=== PATIENT | female | born 1940 | race Caucasian/White ===

== ENCOUNTER → 2017-02-11 | Outpatient (CLI) | payer MEDICARE ==
[~2017-02-11] MED LIST: /FENT50PA TD; DIOV160T5 OR; IBUP400T PO; METO50TA4 OR; MIRALEX PO; MULTIVIT PO; NORV5TAB OR; VICO5TAB OR
[2017-02-11 11:51] LABS: MEAN CORPUSCULAR HEMOGLOBIN 31.8 pg (27.0-33.0); MEAN CORPUSCULAR HGB CONC 32.5 g/dl (32.0-36.5); MEAN CORPUSCULAR VOLUME 97.9 fl (80.0-96.0); RED CELL DISTRIBUTION WIDTH 13.1 % (11.5-14.5); WHITE BLOOD COUNT 9.8 K/mm3 (4.0-10.0)
[2017-02-11 12:00] LABS: ALBUMIN 3.9 GM/DL (3.2-5.2); ALBUMIN/GLOBULIN RATIO 1.3 (1.00-1.93); BILIRUBIN,TOTAL 0.5 MG/DL (0.2-1.0); CALCIUM LEVEL 9.1 MG/DL (8.8-10.2); CREATININE FOR GFR 1.02 MG/DL (0.55-1.02); GLOMERULAR FILTRATION RATE 56.1 (>39); MAGNESIUM LEVEL 2.1 MG/DL (1.8-2.4); POTASSIUM SERUM 4.2 MEQ/L (3.5-5.1); TOTAL PROTEIN 6.9 GM/DL (6.4-8.2)
== END ==
LOC: M WUC 09:31
PROVIDERS: ATTEND Internal Medicine
DX: I10 Essential (primary) hypertension (principal); E11.9 Type 2 diabetes mellitus without complications; E78.00 Pure hypercholesterolemia, unspecified; Z79.01 Long term (current) use of anticoagulants

== ENCOUNTER → 2017-03-21 | Outpatient (CLI) | payer MEDICARE ==
--- NOTE | 2017-03-21 08:53 | REPMRS ---
Patient History The patient states she has not had a clinical breast exam in over a year. Patient is postmenopausal. Family history of prostate cancer in father at age 70, breast cancer in sister at age 65, breast cancer in maternal grandmother at age 70, and breast cancer in paternal cousin at age 60. Took hormonal contraceptives for 5 years. Digital Woman Screen Mammo: March 21, 2017 - Exam #: [id number] Bilateral CC and MLO view(s) were taken. Technologist: Lora Denis, Technologist Prior study comparison: March 06, 2016, digital woman screen mammo performed at [facility]. February 25, 2012, digital mammo diagnostic bilateral, performed at [facility]. FINDINGS: There are scattered fibroglandular densities. There is a needle biopsy marker clip projecting in each breast. There has been no change in the appearance of the mammogram from the prior studies. There is a mild amount of scattered fibroglandular density which is fairly symmetric. There is no interval development of dominant mass, architectural distortion, or clustered microcalcification suggestive of malignancy. ASSESSMENT: BI-RADS/ACR category 1 mammogram. Negative. Recommendation Routine screening mammogram in 1 year (for women over age 40). This mammogram was interpreted with the aid of an FDA-approved computer-aided dectection system. Electronically Signed By: Luis Hernandez MD 03/21/17 [id number]
== END ==
LOC: M WHC 08:16
PROVIDERS: ATTEND Internal Medicine
DX: Z12.31 Encounter for screening mammogram for malignant neoplasm of breast (principal); Z78.0 Asymptomatic menopausal state; I10 Essential (primary) hypertension; Z80.3 Family history of malignant neoplasm of breast

== ENCOUNTER → 2017-08-12 | Outpatient (CLI) | payer MEDICARE ==
[2017-08-12 13:17] LABS: MEAN CORPUSCULAR HGB CONC 31.1 g/dl (32.0-36.5); MEAN CORPUSCULAR VOLUME 96.4 fl (80.0-96.0); PLATELET COUNT, AUTOMATED 256 10^3/uL (150-450); RED CELL DISTRIBUTION WIDTH 13.1 % (11.5-14.5); WHITE BLOOD COUNT 10.8 10^3/uL (4.0-10.0)
[2017-08-12 13:53] LABS: ALBUMIN 3.5 GM/DL (3.2-5.2); ALBUMIN/GLOBULIN RATIO 1.03 (1.00-1.93); ALKALINE PHOSPHATASE 83 U/L (45-117); ALT/SGPT 19 U/L (12-78); ANION GAP 7 MEQ/L (8-16); AST/SGOT 12 U/L (7-37); BILIRUBIN,TOTAL 0.4 MG/DL (0.2-1.0); BLOOD UREA NITROGEN 17 MG/DL (7-18); CARBON DIOXIDE LEVEL 30 MEQ/L (21-32); CHLORIDE LEVEL 106 MEQ/L (98-107); CHOLESTEROL LEVEL 125 MG/DL (<200); CREATININE FOR GFR 0.92 MG/DL (0.55-1.02); GLOMERULAR FILTRATION RATE > 60.0 (>39); GLUCOSE, FASTING 149 MG/DL (83-110); SODIUM LEVEL 143 MEQ/L (136-145); TOTAL PROTEIN 6.9 GM/DL (6.4-8.2); TRIGLYCERIDES LEVEL 161 MG/DL (<150); URIC ACID 6.4 MG/DL (2.6-6.0)
== END ==
LOC: M WUC 09:03
PROVIDERS: ATTEND Internal Medicine
DX: Z79.01 Long term (current) use of anticoagulants (principal); I10 Essential (primary) hypertension; E11.9 Type 2 diabetes mellitus without complications

== ENCOUNTER → 2017-12-29 | Outpatient (CLI) | payer MEDICARE ==
[2017-12-29 09:22] LABS: CHOLESTEROL LEVEL 165 MG/DL (<200); HDL CHOLESTEROL 47 MG/DL (>40); LDL CHOLESTEROL 85.2 MG/DL (<100); NON-HDL-C 118 MG/DL; TRIGLYCERIDES LEVEL 164 MG/DL (<150)
== END ==
LOC: M WUC 08:34
DX: E78.2 Mixed hyperlipidemia (principal)
CPT/HCPCS: 80061

== ENCOUNTER → 2018-02-10 | Outpatient (CLI) | payer MEDICARE ==
[2018-02-10 12:28] LABS: HEMATOCRIT 36.4 % (36.0-47.0); HEMOGLOBIN 11.4 g/dl (12.0-15.5); MEAN CORPUSCULAR HEMOGLOBIN 30.5 pg (27.0-33.0); MEAN CORPUSCULAR HGB CONC 31.3 g/dl (32.0-36.5); MEAN CORPUSCULAR VOLUME 97.3 fl (80.0-96.0); PLATELET COUNT, AUTOMATED 210 10^3/uL (150-450); RED BLOOD COUNT 3.74 10^6/uL (4.00-5.40); RED CELL DISTRIBUTION WIDTH 14.1 % (11.5-14.5); WHITE BLOOD COUNT 9.6 10^3/uL (4.0-10.0)
[2018-02-10 12:49] LABS: FOLATE 22.8 NG/ML
[2018-02-10 12:55] LABS: ALBUMIN/GLOBULIN RATIO 1.54 (1.00-1.93); ALKALINE PHOSPHATASE 52 U/L (45-117); ALT/SGPT 16 U/L (12-78); ANION GAP 5 MEQ/L (8-16); AST/SGOT 14 U/L (7-37); BILIRUBIN,TOTAL 0.4 MG/DL (0.2-1.0); BLOOD UREA NITROGEN 21 MG/DL (7-18); CARBON DIOXIDE LEVEL 31 MEQ/L (21-32); CHLORIDE LEVEL 107 MEQ/L (98-107); CHOLESTEROL LEVEL 144 MG/DL (<200); CHOLESTEROL RISK RATIO 3.512 (<5); FERRITIN 85 NG/ML (8-252); GLOMERULAR FILTRATION RATE 57.2 (>39); GLUCOSE, FASTING 130 MG/DL (70-100); HDL CHOLESTEROL 41 MG/DL (>40); IRON (FE) 55 UG/DL (50-170); LDL CHOLESTEROL 67.8 MG/DL (<100); MAGNESIUM LEVEL 2.3 MG/DL (1.8-2.4); NON-HDL-C 103 MG/DL; PERCENT SATURATION 21.5 % (13.2-45.0); POTASSIUM SERUM 4.9 MEQ/L (3.5-5.1); SODIUM LEVEL 143 MEQ/L (136-145); TOTAL IRON BINDING CAPACITY 256 UG/DL (250-450); TOTAL PROTEIN 6.6 GM/DL (6.4-8.2); TRIGLYCERIDES LEVEL 176 MG/DL (<150)
[2018-02-10 13:07] LABS: CREATININE, URINE 84.4 MG/DL; MAU/CREAT RATIO 5.9 MCG/MG (0.0-30.0)
[2018-02-10 13:40] LABS: ESTIMATED AVERAGE GLUCOSE 146 MG/DL (60-110); HEMOGLOBIN A1c 6.7 %
[2018-02-10 13:50] LABS: VITAMIN B12 LEVEL 428 PG/ML
== END ==
LOC: M WUC 09:26
DX: D64.9 Anemia, unspecified (principal); I10 Essential (primary) hypertension; E11.9 Type 2 diabetes mellitus without complications; E78.00 Pure hypercholesterolemia, unspecified
CPT/HCPCS: 82746

== ENCOUNTER 2018-04-04 16:14 | Emergency (ER) | payer MEDICARE ==
[2018-04-04] MEDS: PERCOCET 5MG/325MG TAB PO (16:45)
== END 2018-04-04 17:26 | disposition home or self-care (01) ==
LOC: M ED 16:14
DX: S22.32XA Fracture of one rib, left side, initial encounter for closed fracture (principal); J90 Pleural effusion, not elsewhere classified; I51.7 Cardiomegaly; W19.XXXA Unspecified fall, initial encounter; Y92.9 Unspecified place or not applicable; Y93.9 Activity, unspecified; Y99.9 Unspecified external cause status; I51.9 Heart disease, unspecified; I10 Essential (primary) hypertension; Z87.891 Personal history of nicotine dependence; Z79.899 Other long term (current) drug therapy; Z88.5 Allergy status to narcotic agent; Z88.8 Allergy status to other drugs, medicaments and biological substances
CPT/HCPCS: 94010

== ENCOUNTER → 2018-04-04 | Outpatient (CLI) | payer MEDICARE | LOC: M WUC 15:38 | DX: S22.32XA Fracture of one rib, left side, initial encounter for closed fracture (principal); J90 Pleural effusion, not elsewhere classified; I51.7 Cardiomegaly; X58.XXXA Exposure to other specified factors, initial encounter; Y92.9 Unspecified place or not applicable ==

== ENCOUNTER → 2018-08-04 | Outpatient (REF) | payer MEDICARE ==
[2018-08-04 12:16] LABS: ALBUMIN 3.8 GM/DL (3.2-5.2); ALBUMIN/GLOBULIN RATIO 1.36 (1.00-1.93); ALKALINE PHOSPHATASE 68 U/L (45-117); ALT/SGPT 16 U/L (12-78); ANION GAP 8 MEQ/L (8-16); AST/SGOT 9 U/L (7-37); BILIRUBIN,TOTAL 0.8 MG/DL (0.2-1.0); BLOOD UREA NITROGEN 19 MG/DL (7-18); CALCIUM LEVEL 9.2 MG/DL (8.8-10.2); CARBON DIOXIDE LEVEL 32 MEQ/L (21-32); CHLORIDE LEVEL 98 MEQ/L (98-107); CREATININE FOR GFR 1.11 MG/DL (0.55-1.30); GLOMERULAR FILTRATION RATE 50.6 (>39); GLUCOSE, FASTING 158 MG/DL (70-100); MAGNESIUM LEVEL 1.8 MG/DL (1.8-2.4); POTASSIUM SERUM 4.6 MEQ/L (3.5-5.1); SODIUM LEVEL 138 MEQ/L (136-145); TOTAL PROTEIN 6.6 GM/DL (6.4-8.2); URIC ACID 6.4 MG/DL (2.6-6.0)
[2018-08-04 12:24] LABS: HEMATOCRIT 35.8 % (36.0-47.0); HEMOGLOBIN 11.2 g/dl (12.0-15.5); MEAN CORPUSCULAR HEMOGLOBIN 30.4 pg (27.0-33.0); MEAN CORPUSCULAR HGB CONC 31.3 g/dl (32.0-36.5); MEAN CORPUSCULAR VOLUME 97.3 fl (80.0-96.0); PLATELET COUNT, AUTOMATED 222 10^3/uL (150-450); RED BLOOD COUNT 3.68 10^6/uL (4.00-5.40); RED CELL DISTRIBUTION WIDTH 14.3 % (11.5-14.5); WHITE BLOOD COUNT 17.1 10^3/uL (4.0-10.0)
[2018-08-04 12:49] LABS: ESTIMATED AVERAGE GLUCOSE 146 MG/DL (60-110); HEMOGLOBIN A1c 6.7 %
== END ==
LOC: M SFHCPLAZ 08:19
DX: D64.9 Anemia, unspecified (principal); I10 Essential (primary) hypertension; E11.9 Type 2 diabetes mellitus without complications; M10.9 Gout, unspecified
CPT/HCPCS: 83735

== ENCOUNTER → 2019-02-03 | Outpatient (CLI) | payer MEDICARE ==
[~2019-02-03] MED LIST changes: -/FENT50PA TD; +ATOR40TA75 PO; +CARV6.25 PO; +CHLO125TA PO; +DIGO0.259 PO; +ELIQ5TAB PO; +FENT1DIS15 TD; +JANU100T PO; +LOSA100T50 PO; +PERC5TAB12 PO
[2019-02-03 12:12] LABS: HEMATOCRIT 39.9 % (36.0-47.0); HEMOGLOBIN 12.5 g/dl (12.0-15.5); MEAN CORPUSCULAR HEMOGLOBIN 30.4 pg (27.0-33.0); MEAN CORPUSCULAR HGB CONC 31.3 g/dl (32.0-36.5); MEAN CORPUSCULAR VOLUME 97.1 fl (80.0-96.0); PLATELET COUNT, AUTOMATED 194 10^3/uL (150-450); RED BLOOD COUNT 4.11 10^6/uL (4.00-5.40); WHITE BLOOD COUNT 9.1 10^3/uL (4.0-10.0)
[2019-02-03 12:37] LABS: ALBUMIN 3.7 GM/DL (3.2-5.2); ALT/SGPT 19 U/L (12-78); BILIRUBIN,TOTAL 0.4 MG/DL (0.2-1.0); BLOOD UREA NITROGEN 19 MG/DL (7-18); CALCIUM LEVEL 8.9 MG/DL (8.8-10.2); CARBON DIOXIDE LEVEL 31 MEQ/L (21-32); CHLORIDE LEVEL 104 MEQ/L (98-107); CHOLESTEROL LEVEL 144 MG/DL (<200); CREATININE FOR GFR 0.86 MG/DL (0.55-1.30); GLOMERULAR FILTRATION RATE > 60.0 (>39); GLUCOSE, FASTING 155 MG/DL (70-100); HDL CHOLESTEROL 40 MG/DL (>40); LDL CHOLESTEROL 69 MG/DL (<100); NON-HDL-C 104 MG/DL; POTASSIUM SERUM 4.3 MEQ/L (3.5-5.1); SODIUM LEVEL 142 MEQ/L (136-145); TRIGLYCERIDES LEVEL 175 MG/DL (<150)
[2019-02-03 12:56] LABS: CREATININE, URINE 86.8 MG/DL; MALB URINE SIEMENS 16.5 MG/L
[2019-02-03 13:34] LABS: HEMOGLOBIN A1c 7.1 %
== END ==
LOC: M WUC 08:39
PROVIDERS: ATTEND Internal Medicine
DX: D64.9 Anemia, unspecified (principal); I10 Essential (primary) hypertension; E11.9 Type 2 diabetes mellitus without complications; I48.0 Paroxysmal atrial fibrillation

== ENCOUNTER → 2019-04-13 | Outpatient (CLI) | payer MEDICARE ==
--- NOTE | 2019-04-13 12:02 | REP ---
BILATERAL SCREENING DIGITAL MAMMOGRAM WITH 3D TOMOSYNTHESIS: There are no palpable abnormalities or other breast complaints. The the patient states she has not had a clinical breast examination over a year. The the patient states she performs self-breast examinations 12 times per year. The Tyrer Cuzick Score is: 5.9% . Comparisons are 03/06/2016 and 02/14/2012. The breasts are heterogeneously dense, which could obscure small masses. There is no dominant mass, micro calcific cluster or architectural distortion that would indicate malignancy. There are no additional findings on 3D tomosynthesiss. There are bilateral breast biopsy marking clips. The the patient had bilateral breast biopsies in 2011 at were benign. There is no change from the prior study. Impression: BIRADS/ACR category 1 mammogram. Negative. Recommendation: Routine annual screening mammography. Because of the increased breast density, annual adjunctive breast MRI in addition to screening mammography is recommended. This mammogram was interpreted with the aid of a FDA approved computer-aided detection system. A. Negative mammogram reports should not delay biopsy if a dominant or clinically suspicious mass is present. B. Not all breast cancers are identified by mammography or tomosynthesis. C. Adenosis and dense breasts may obscure an underlying neoplasm. Patient letter M1 dense breasts. Electronically Signed by Alvaro Lucio MD 04/13/2019 11:54 A
== END ==
LOC: M WHC 09:08
PROVIDERS: ATTEND Internal Medicine
DX: Z12.31 Encounter for screening mammogram for malignant neoplasm of breast (principal)

== ENCOUNTER 2019-05-14 08:32 | Outpatient (RCR) | payer MEDICARE | END 2019-05-15 | LOC: M PT 08:32 | PROVIDERS: ATTEND Orthopaedic Surgery | DX: Z47.89 Encounter for other orthopedic aftercare (principal); M18.12 Unilateral primary osteoarthritis of first carpometacarpal joint, left hand; M65.842 Other synovitis and tenosynovitis, left hand | CPT/HCPCS: 97035; 97110; 97140; 97161; G0283 ==

== ENCOUNTER 2019-05-18 08:38 | Outpatient (RCR) | payer MEDICARE | END 2019-06-14 | LOC: M PT 08:38 | PROVIDERS: ATTEND Orthopaedic Surgery | DX: Z47.89 Encounter for other orthopedic aftercare (principal); M18.12 Unilateral primary osteoarthritis of first carpometacarpal joint, left hand; M65.842 Other synovitis and tenosynovitis, left hand | CPT/HCPCS: 97035; 97110; G0283 ==

== ENCOUNTER → 2019-08-10 | Outpatient (CLI) | payer MEDICARE ==
[2019-08-10 12:53] LABS: BILIRUBIN,TOTAL 0.7 MG/DL (0.2-1.0); CALCIUM LEVEL 9.6 MG/DL (8.8-10.2); CHOLESTEROL RISK RATIO 3.625 (<5); CREATININE FOR GFR 1.01 MG/DL (0.55-1.30); GLOMERULAR FILTRATION RATE 56.3 (>39); MAGNESIUM LEVEL 1.9 MG/DL (1.8-2.4); POTASSIUM SERUM 3.8 MEQ/L (3.5-5.1); TOTAL PROTEIN 7.2 GM/DL (6.4-8.2)
[2019-08-10 12:57] LABS: HEMATOCRIT 38.2 % (36.0-47.0); HEMOGLOBIN 12.1 g/dl (12.0-15.5); MEAN CORPUSCULAR HEMOGLOBIN 30.9 pg (27.0-33.0); MEAN CORPUSCULAR HGB CONC 31.7 g/dl (32.0-36.5); MEAN CORPUSCULAR VOLUME 97.7 fl (80.0-96.0); PLATELET COUNT, AUTOMATED 217 10^3/uL (150-450); RED BLOOD COUNT 3.91 10^6/uL (4.00-5.40); WHITE BLOOD COUNT 10.8 10^3/uL (4.0-10.0)
[2019-08-10 14:00] LABS: HEMOGLOBIN A1c 6.6 %
== END ==
LOC: M WUC 09:00
PROVIDERS: ATTEND Internal Medicine
DX: D64.9 Anemia, unspecified (principal); I10 Essential (primary) hypertension; E11.9 Type 2 diabetes mellitus without complications; E78.00 Pure hypercholesterolemia, unspecified

== ENCOUNTER → 2020-01-31 | Outpatient (CLI) | payer MEDICARE ==
[~2020-01-31] MED LIST changes: +AMLO5TAB6; +KEFL500C17 PO
--- NOTE | 2020-01-31 13:21 | REP ---
RIGHT LOWER LEG, TWO VIEWS: There is no evidence of an acute fracture, dislocation, or intrinsic bone disease. There is mild posterior calcaneal spurring. IMPRESSION: No fracture or dislocation. Electronically Signed by Alvaro Farias MD 01/31/2020 01:45 P
== END ==
LOC: M WUC 10:25
PROVIDERS: ATTEND Physician Assistant
DX: M79.661 Pain in right lower leg (principal)

== ENCOUNTER 2020-02-03 10:23 | Emergency (ER) | payer MEDICARE ==
[~2020-02-03] VITALS: Ht 157.5 cm; Wt 98.6 kg
[~2020-02-03 10:23] MED LIST changes: -AMLO5TAB6; -KEFL500C17 PO
[2020-02-03 10:24] VITALS: BP 179/85
[2020-02-03] MEDS ORDERED: AMLO5TAB6 (10:47)
--- NOTE | 2020-02-03 12:24 | REP ---
ULTRASOUND ANTERIOR RIGHT LOWER LEG SOFT TISSUES: Real-time sonographic evaluation of the soft tissues of the anterior aspect of the right lower leg performed at the site of swelling. There is a somewhat lobulated hypoechoic area seen which measures 3.8 x 1.1 x 3.9 cm. This most likely represents a hematoma. There is an adjacent ill-defined edema in the soft tissues. Electronically Signed by Alvaro Farias MD 02/03/2020 02:57 P
[2020-02-03] MEDS ORDERED: KEFL500C17 PO (12:41)
== END 2020-02-03 12:48 | disposition home or self-care (01) ==
LOC: M ED 10:23
DX: S80.11XA Contusion of right lower leg, initial encounter (principal); L03.115 Cellulitis of right lower limb; W22.09XA Striking against other stationary object, initial encounter; Y92.098 Other place in other non-institutional residence as the place of occurrence of the external cause; I10 Essential (primary) hypertension; I48.91 Unspecified atrial fibrillation; E11.9 Type 2 diabetes mellitus without complications; Z98.890 Other specified postprocedural states; Z87.891 Personal history of nicotine dependence; Z88.8 Allergy status to other drugs, medicaments and biological substances; Z79.899 Other long term (current) drug therapy; Z79.01 Long term (current) use of anticoagulants

== ENCOUNTER → 2020-02-09 | Outpatient (CLI) | payer MEDICARE ==
[~2020-02-09] MED LIST changes: +AMLO5TAB6; +KEFL500C17 PO
[2020-02-09 10:23] LABS: HEMOGLOBIN A1c 6.3 %; MALB URINE SIEMENS 16.7 MG/L; MAU/CREAT RATIO 8.2 MCG/MG (0.0-30.0)
[2020-02-09 10:28] LABS: BILIRUBIN,TOTAL 0.7 MG/DL (0.2-1.0); CALCIUM LEVEL 9.4 MG/DL (8.8-10.2); CHOLESTEROL RISK RATIO 3.425 (<5); CREATININE FOR GFR 1.04 MG/DL (0.55-1.30); GLOMERULAR FILTRATION RATE 54.4 (>39); MAGNESIUM LEVEL 2.1 MG/DL (1.8-2.4)
== END ==
LOC: M WUC 08:24
PROVIDERS: ATTEND Internal Medicine
DX: I10 Essential (primary) hypertension (principal); E11.9 Type 2 diabetes mellitus without complications; E78.00 Pure hypercholesterolemia, unspecified

== ENCOUNTER → 2020-08-21 | Outpatient (CLI) | payer MEDICARE ==
[~2020-08-21] MED LIST changes: +AMLO1TAB24; -AMLO5TAB6
[2020-08-21 11:08] LABS: ALBUMIN 3.9 GM/DL (3.2-5.2); BILIRUBIN,TOTAL 0.5 MG/DL (0.2-1.0); CALCIUM LEVEL 9.5 MG/DL (8.8-10.2); CHOLESTEROL RISK RATIO 3.408 (<5); CREATININE FOR GFR 1.09 MG/DL (0.55-1.30); GLOMERULAR FILTRATION RATE 51.4 (>32); MAGNESIUM LEVEL 2.1 MG/DL (1.8-2.4); TOTAL PROTEIN 6.6 GM/DL (6.4-8.2)
[2020-08-21 11:40] LABS: HEMOGLOBIN A1c 6.1 %
== END ==
LOC: M WUC 08:25
PROVIDERS: ATTEND Internal Medicine
DX: E78.00 Pure hypercholesterolemia, unspecified (principal); E11.9 Type 2 diabetes mellitus without complications; I10 Essential (primary) hypertension

== ENCOUNTER 2020-12-25 13:23 | Observation (INO) | payer MEDICARE ==
[~2020-12-25] VITALS: Ht 157.5 cm; Wt 54.3 kg
[2020-12-25 14:51] LABS: BASO # 0.1 10^3/uL (0.0-0.2); BASO % 0.4 % (0.0-1.0); EOS # 0.1 10^3/uL (0.0-0.5); EOS % 0.5 % (0.0-3.0); HEMATOCRIT 40.2 % (36.0-47.0); HEMOGLOBIN 12.8 g/dl (12.0-15.5); LYMPH # 3.6 10^3/uL (1.5-5.0); LYMPH % 30.2 % (24.0-44.0); MEAN CORPUSCULAR HGB CONC 31.8 g/dl (32.0-36.5); MEAN CORPUSCULAR VOLUME 94.4 fl (80.0-96.0); MONO # 0.8 10^3/uL (0.0-0.8); MONO % 6.9 % (2.0-8.0); NEUTROPHILS # 7.3 10^3/uL (1.5-8.5); NEUTROPHILS % 61.7 % (36.0-66.0); PLATELET COUNT, AUTOMATED 209 10^3/uL (150-450); RED BLOOD COUNT 4.26 10^6/uL (4.00-5.40); WHITE BLOOD COUNT 11.8 10^3/uL (4.0-10.0)
[2020-12-25 15:01] LABS: INR 1.12; PROTHROMBIN TIME 14.6 SECONDS (12.5-14.3)
[2020-12-25 15:02] LABS: PARTIAL THROMBOPLASTIN TIME 38.4 SECONDS (24.2-38.5)
[2020-12-25 15:24] LABS: ALBUMIN 4.3 GM/DL (3.2-5.2); BILIRUBIN,TOTAL 0.5 MG/DL (0.2-1.0); CALCIUM LEVEL 9.6 MG/DL (8.8-10.2); CREATININE FOR GFR 1.04 MG/DL (0.55-1.30); GLOMERULAR FILTRATION RATE 54.3 (>32); POTASSIUM SERUM 4.1 MEQ/L (3.5-5.1); TOTAL PROTEIN 7.4 GM/DL (6.4-8.2)
[2020-12-25] MEDS ORDERED: NS 1,000 ML IV ONE (16:00)
[2020-12-25] MEDS ORDERED: SILVER NITRATE APPLICATOR TOP ONE ×3 (16:40→18:45)
[2020-12-25] MEDS ORDERED: ACETAMINOPHEN 325 MG TAB PO ONE (18:05)
[2020-12-25 20:21] LABS: BASO % 0.2 % (0.0-1.0); EOS # 0.1 10^3/uL (0.0-0.5); EOS % 0.6 % (0.0-3.0); HEMATOCRIT 35.1 % (36.0-47.0); HEMOGLOBIN 11.4 g/dl (12.0-15.5); LYMPH % 31.7 % (24.0-44.0); MEAN CORPUSCULAR HEMOGLOBIN 30.5 pg (27.0-33.0); MEAN CORPUSCULAR HGB CONC 32.5 g/dl (32.0-36.5); MEAN CORPUSCULAR VOLUME 93.9 fl (80.0-96.0); MONO # 0.8 10^3/uL (0.0-0.8); NEUTROPHILS # 7.6 10^3/uL (1.5-8.5); PLATELET COUNT, AUTOMATED 200 10^3/uL (150-450); RED BLOOD COUNT 3.74 10^6/uL (4.00-5.40); WHITE BLOOD COUNT 12.5 10^3/uL (4.0-10.0)
[2020-12-25] MEDS ORDERED: ELIQ5TAB PO (20:47)
[2020-12-25] MEDS ORDERED: DIGO0.123 PO (20:47)
[2020-12-25] MEDS ORDERED: LOSA100T50 PO (20:47)
[2020-12-25] MEDS ORDERED: ATOR40TA75 PO (20:47)
[2020-12-25] MEDS ORDERED: JANU100T PO (20:47)
[2020-12-25] MEDS ORDERED: CARV6.25 PO (20:47)
[2020-12-25] MEDS ORDERED: CHLO125TA PO (20:47)
[2020-12-25] MEDS ORDERED: AMLO1TAB24 PO (20:47)
[2020-12-25] MEDS ORDERED: VITMTA PO (20:47)
[2020-12-25] MEDS ORDERED: HumaLOG INSULIN (NovoLOG) PER UNIT SC SCH (21:00)
[2020-12-25] MEDS ORDERED: ACETAMINOPHEN TAB 650MG DOSE (2X325MG) PO PRN (21:40)
[2020-12-25] MEDS ORDERED: GLUCOSE 4GM CHEW TABLET PO PRN (21:40)
[2020-12-25] MEDS ORDERED: DEXTROSE 50% 50 ML SYRINGE IV PRN (21:40)
[2020-12-25] MEDS ORDERED: GLUCAGON INJ 1MG VIAL SC PRN (21:40)
--- NOTE | 2020-12-25 22:04 | HPEPDOC ---
[facility] Medical History & Physical Date of Admission Dec 25, 2020 Date of Service: Dec 25, 2020 History and Physical CHIEF COMPLAINT: Scalp laceration HISTORY OF PRESENT ILLNESS: 80-year-old female history of atrial fibrillation on eliquis, hypertension, spinal stenosis, hsi-[id number] diabetes who presents due to bleeding from her scalp. Patient tells me that she has actinic keratosis and was seen at dermatology clinic where she underwent the deep shave biopsy she went home and it was no bleeding for about 15 minutes but shortly after the bleeding started. She presented to emergency department and they've been trying to control the bleeding with past 10 hours or so. Finally the bleeding has been controlled the patient will be admitted for observation to ensure the bleeding has stopped. Patient's eliquis will be held for today. She really received her morning dose. Patient tells me she doesn't have any shortness of breath no chest pain no lightheadedness no abdominal pain no nausea no vomiting no fevers no chills. PAST MEDICAL/SURGICAL HISTORY: H of fibrillation eliquis Hypertension Spinal stenosis Ktg-[id number]-pmfrpslkc diabetes 2 C-sections Rotator cuff surgery bilaterally SOCIAL HISTORY: Denies alcohol use Denies tobacco use Denies illicit drug use FAMILY HISTORY: Reviewed and none contributory to this admission ALLERGIES: Please see below. REVIEW OF SYSTEMS: 10 point review of systems complete all negative otherwise stated in HPI HOME MEDICATIONS: Please see below. PHYSICAL EXAMINATION: Constitutional: Awake and alert, in no apparent distress, sitting comfortably with pressure dressing on her head no obvious signs of bleeding. The dressing in her head was not removed to examine her bleeding scalp out of fear that she will bleed again. ENT: Sclera are clear. Mucosa is moist. Respiratory: Lungs CTA bilaterally. No respiratory distress Cardiovascular: Heart rate is regular in rate and rhythm. Obtain EEG which confirmed normal sinus rhythm rate~60 Gastrointestinal: Abdomen is soft, non distended, non tender, BS present. Musculoskeletal: No lower extremity edema. Neurologic: No focal neurological deficit. Mental Status: A&O x3, normal affect Skin: Warm, dry LABORATORY DATA: See below. IMAGING: See chart MICROBIOLOGY: Please see below. ASSESSMENT/PLAN 80-year-old female just underwent a deep shave biopsy for scalp resents due to difficult to control bleeding at the biopsy site area admitted for observation for bleeding control and to monitor hemoglobin. # Bleeding scalp: Resulting from deep shave biopsy. Continue pressure dressing. Admit for observation. Repeat CBC to monitor for hemoglobin. s/p 1L NS. # Atrial fibrillation: Currently normal sinus rhythm. Her rate is controlled. We'll hold her eliquis for now. # Hypertension: Continue home meds. Monitor and titrate # DM: ISS. Frequent Accu-Cheks. Hypoglycemic precautions. # DVT prophylaxis: TEDs?SCDs only A Youse[facility] Hospitalist Vital Signs Vital Signs Date Time Temp Pulse Resp B/P (MAP) Pulse Ox O2 Delivery O2 Flow Rate FiO2 12/25/20 20:02 12/25/20 20:02 97.1 74 16 97 Room Air Laboratory Data Labs 24H Laboratory Tests 2 12/25/20 14:35: Immature Granulocyte % (Auto) 0.3, Neutrophils (%) (Auto) 61.7, Lymphocytes (%) (Auto) 30.2, Monocytes (%) (Auto) 6.9, Eosinophils (%) (Auto) 0.5, Basophils (%) (Auto) 0.4, Neutrophils # (Auto) 7.3, Lymphocytes # (Auto) 3.6, Monocytes # (Auto) 0.8, Eosinophils # (Auto) 0.1, Basophils # (Auto) 0.1, Nucleated Red Blood Cells % (auto) 0.0, Prothrombin Time 14.6H, Prothromb Time International Ratio 1.12, Activated Partial Thromboplast Time 38.4, Anion Gap 6L, Glomerular Filtration Rate 54.3, Calcium Level 9.6, Total Bilirubin 0.5, Aspartate Amino Transf (AST/SGOT) 14, Alanine Aminotransferase (ALT/SGPT) 19, Alkaline Phosphata se 79, Total Protein 7.4, Albumin 4.3, Albumin/Globulin Ratio 1.4 12/25/20 20:00: Immature Granulocyte % (Auto) 0.5, Neutrophils (%) (Auto) 61.0, Lymphocytes (%) (Auto) 31.7, Monocytes (%) (Auto) 6.0, Eosinophils (%) (Auto) 0.6, Basophils (%) (Auto) 0.2, Neutrophils # (Auto) 7.6, Lymphocytes # (Auto) 4.0, Monocytes # (Auto) 0.8, Eosinophils # (Auto) 0.1, Basophils # (Auto) 0.0, Nucleated Red Blood Cells % (auto) 0.0 12/25/20 20:03: POC Glucose (Misc Panel) 161H, POC Sodium (Misc Panel) 140, POC Potassium (Misc Panel) 3.7, POC Chloride (Misc Panel) 103, POC Total CO2 (Misc Panel) 25.0, POC Blood Urea Nitrogen (Misc Panel 23, POC Ionized Calcium (Misc Panel) 4.9, POC Creatinine (Misc Panel) 1.0, POC Hematocrit (Misc Panel) 36.0L 12/25/20 21:08: CBC/BMP Laboratory Tests 12/25/20 14:35 12/25/20 20:00 Home Medications Scheduled Amlodipine Besylate (Amlodipine Besylate) 5 Mg Tablet, 5 MG PO DAILY Apixaban (Eliquis) 5 Mg Tablet, 5 MG PO BID Atorvastatin Calcium (Atorvastatin Calcium) 40 Mg Tablet, 20 MG PO Q2D Carvedilol (Carvedilol) 6.25 Mg Tablet, 6.25 MG PO BID Chlorthalidone (Chlorthalidone) 25 Mg Tablet, 12.5 MG PO QPM TAKES AT DINNER Digoxin (Digoxin) 125 Mcg Tablet, 125 MCG PO DAILY Losartan Potassium (Losartan Potassium) 100 Mg Tablet, 100 MG PO DAILY Multivitamins (Thera M Plus Tablet) 1 Each Tablet, 1 TAB PO DAILY Sitagliptin Phosphate (Januvia) 100 Mg Tablet, 100 MG PO QPM TAKES AT DINNER Allergies Coded Allergies: indomethacin (Verified Adverse Reaction, Unknown, HEADACHE, 02/03/20) A-FIB/CHADSVASC A-FIB History Current/History of A-Fib/PAF?: Yes Current PO Anticoag Therapy: Yes RU BURRELL MD Dec 25, 2020 22:04
[2020-12-25 22:11] LABS: RSV AMPLIFICATION NEGATIVE (NEGATIVE)
[2020-12-25] MEDS: CARVedilol 6.25 MG TAB PO SCH (22:44)
[2020-12-26 00:18] VITALS: BP 146/60
[2020-12-26 06:00] VITALS: BP 139/58
[2020-12-26 06:50] LABS: HEMATOCRIT 32.4 % (36.0-47.0); HEMOGLOBIN 10.2 g/dl (12.0-15.5); MEAN CORPUSCULAR HEMOGLOBIN 29.7 pg (27.0-33.0); MEAN CORPUSCULAR HGB CONC 31.5 g/dl (32.0-36.5); MEAN CORPUSCULAR VOLUME 94.2 fl (80.0-96.0); PLATELET COUNT, AUTOMATED 176 10^3/uL (150-450); RED BLOOD COUNT 3.44 10^6/uL (4.00-5.40); WHITE BLOOD COUNT 10.5 10^3/uL (4.0-10.0)
[2020-12-26 07:17] LABS: BLOOD UREA NITROGEN 20 MG/DL (7-18); CALCIUM LEVEL 9.1 MG/DL (8.8-10.2); CARBON DIOXIDE LEVEL 28 MEQ/L (21-32); CHLORIDE LEVEL 108 MEQ/L (98-107); CREATININE FOR GFR 0.79 MG/DL (0.55-1.30); GLOMERULAR FILTRATION RATE > 60.0 (>32); GLUCOSE, FASTING 98 MG/DL (70-100); POTASSIUM SERUM 3.5 MEQ/L (3.5-5.1); SODIUM LEVEL 142 MEQ/L (136-145)
[2020-12-26] MEDS ORDERED: LOSARTAN 50MG TABLET PO SCH (09:00)
[2020-12-26] MEDS ORDERED: amLODIPine 5 MG TAB PO SCH (09:00)
[2020-12-26] MEDS ORDERED: DIGOXIN 0.125 MG TAB PO SCH (09:00)
[2020-12-26] MEDS ORDERED: TRIAMCINOLONE ACETONIDE SUSP 40 MG/ML VIAL (J3301) IA ONE (09:00)
[2020-12-26] MEDS: HumaLOG INSULIN (NovoLOG) PER UNIT SC SCH ×2 (09:07→12:00)
[2020-12-26 09:26] VITALS: BP 120/50
[2020-12-26] MEDS: CARVedilol 6.25 MG TAB PO SCH (09:26)
--- NOTE | 2020-12-26 13:18 | DS.PDOC ---
Discharge Summary General Date of Admission Dec 25, 2020 at 13:24 Date of Discharge 12/26/[address] GUZMAN'S DISCHARGE NOTE JOB #[id number] Vital Signs/I&Os Vital Signs Date Time Temp Pulse Resp B/P (MAP) Pulse Ox O2 Delivery O2 Flow Rate FiO2 12/26/20 09:27 62 12/26/20 09:26 120/50 12/26/20 06:00 97.8 18 99 Room Air I&O- Last 24 Hours up to 6 AM 12/26/20 06:00 Intake Total 1000 ml Output Total 775 ml Balance 225 ml Laboratory Data Labs 24H Laboratory Tests 2 12/25/20 14:35: Immature Granulocyte % (Auto) 0.3, Neutrophils (%) (Auto) 61.7, Lymphocytes (%) (Auto) 30.2, Monocytes (%) (Auto) 6.9, Eosinophils (%) (Auto) 0.5, Basophils (%) (Auto) 0.4, Neutrophils # (Auto) 7.3, Lymphocytes # (Auto) 3.6, Monocytes # (Auto) 0.8, Eosinophils # (Auto) 0.1, Basophils # (Auto) 0.1, Nucleated Red Blood Cells % (auto) 0.0, Prothrombin Time 14.6H, Prothromb Time International Ratio 1.12, Activated Partial Thromboplast Time 38.4, Anion Gap 6L, Glomerular Filtration Rate 54.3, Calcium Level 9.6, Total Bilirubin 0.5, Aspartate Amino Transf (AST/SGOT) 14, Alanine Aminotransferase (ALT/SGPT) 19, Alkaline Phosphatase 79, Total Protein 7.4, Albumin 4.3, Albumin/Globulin Ratio 1.4 12/25/20 20:00: Immature Granulocyte % (Auto) 0.5, Neutrophils (%) (Auto) 61.0, Lymphocytes (%) (Auto) 31.7, Monocytes (%) (Auto) 6.0, Eosinophils (%) (Auto) 0.6, Basophils (%) (Auto) 0.2, Neutrophils # (Auto) 7.6, Lymphocytes # (Auto) 4.0, Monocytes # (Auto) 0.8, Eosinophils # (Auto) 0.1, Basophils # (Auto) 0.0, Nucleated Red Blo od Cells % (auto) 0.0 12/25/20 20:03: POC Glucose (Misc Panel) 161H, POC Sodium (Misc Panel) 140, POC Potassium (Misc Panel) 3.7, POC Chloride (Misc Panel) 103, POC Total CO2 (Misc Panel) 25.0, POC Blood Urea Nitrogen (Misc Panel 23, POC Ionized Calcium (Misc Panel) 4.9, POC Creatinine (Misc Panel) 1.0, POC Hematocrit (Misc Panel) 36.0L 12/25/20 21:08: Coronavirus (COVID-19)(PCR) NEGATIVE, Influenza Type A (RT-PCR) NEGATIVE, Influenza Type B (RT-PCR) NEGATIVE, Respiratory Syncytial Virus (PCR) NEGATIVE 12/25/20 22:16: Bedside Glucose (Misc Panel) 202H 12/26/20 05:56: Nucleated Red Blood Cells % (auto) 0.0, Anion Gap 6L, Glomerular Filtration Rate > 60.0, Calcium Level 9.1 12/26/20 11:34: Bedside Glucose (Misc Panel) 162H CBC/BMP Laboratory Tests 12/25/20 14:35 12/25/20 20:00 12/26/20 05:56 FSBS Laboratory Tests Test 12/25/20 22:16 12/26/20 11:34 Range/Units Bedside Glucose (Misc Panel) 202 162 83-110 MG/DL Discharge Medications Scheduled Amlodipine Besylate (Amlodipine Besylate) 5 Mg Tablet, 5 MG PO DAILY, (Reported) Atorvastatin Calcium (Atorvastatin Calcium) 40 Mg Tablet, 20 MG PO Q2D, (Reported) Carvedilol (Carvedilol) 6.25 Mg Tablet, 6.25 MG PO BID, (Reported) Chlorthalidone (Chlorthalidone) 25 Mg Tablet, 12.5 MG PO QPM, (Reported) TAKES AT DINNER Digoxin (Digoxin) 125 Mcg Tablet, 125 MCG PO DAILY, (Reported) Losartan Potassium (Losartan Potassium) 100 Mg Tablet, 100 MG PO DAILY, (Reported) Multivitamins (Thera M Plus Tablet) 1 Each Tablet, 1 TAB PO DAILY, (Reported) Sitagliptin Phosphate (Januvia) 100 Mg Tablet, 100 MG PO QPM, (Reported) TAKES AT DINNER Allergies Coded Allergies: indomethacin (Verified Adverse Reaction, Unknown, HEADACHE, 02/03/20) ARLEY GUZMAN MD Dec 26, 2020 13:18
--- NOTE | 2020-12-26 15:45 | DSES ---
DISCHARGE SUMMARY DATE OF ADMISSION: 12/25/2020 DATE OF DISCHARGE: 12/26/2020 PRIMARY DISCHARGE DIAGNOSES: 1. Scalp laceration status post a deep shave biopsy with acute blood loss in the setting of chronic Eliquis use. Last dose was 12/25/2020. 2. Hypertension. 3. Chronic spinal stenosis. 4. Diabetes. DISCHARGE MEDICATIONS: 1. Amlodipine 5 mg daily. 2. Atorvastatin 20 mg every 48 hours. 3. Coreg 6.25 b.i.d. 4. Chlorthalidone 12.5 q.p.m. 5. Digoxin 125 mcg daily. 6. Losartan 100 daily. 7. Multivitamin one tablet daily. 8. Januvia 100 q.p.m. DISCHARGE INSTRUCTIONS: Patient is to refrain and not take her Eliquis for 48 hours. May resume on , 12/28/2020. Patient is to keep the scalp laceration dry. Home care referral has been made. Primary care physician appointment within five days of hospital discharge to evaluate the scalp laceration. HOSPITAL COURSE: This is an 80-year-old female on chronic Eliquis for a history of chronic atrial fibrillation who presents with acute blood loss with bleeding for the past 10 hours after a deep shave biopsy by the Dermatology Clinic with history of actinic keratosis. Patient was fine for about 15 minutes after returning home, but bleeding continued for about 10 hours. She was admitted for observation and was taken off of her Eliquis. Her hemoglobin was 12.8 on admission, discharge at 10.2 with no signs of symptomatic anemia. Did not require any RBC transfusion. She was kept off of Eliquis and instructed not to take her Eliquis for two days, to resume it on , 12/28/2020. Bandage was placed on the scalp laceration. She had no other acute issues. Discharged home with home care. PHYSICAL EXAMINATION: VITAL SIGNS: Temperature 97.8, pulse 61, respiratory rate 18, blood pressure 120/50, 99% on room air. GENERAL: Patient has a bandaged scalp dressing. LUNGS: Clear to auscultation. No wheezing or rales. HEART: S1 and S2, irregularly irregular. ABDOMEN: Soft, nontender, nondistended. Positive bowel sounds. EXTREMITIES: No cyanosis or clubbing. LABORATORY DATA: White count 10, hemoglobin 10, hematocrit 32, platelet count 176. Sodium 142, potassium 3.5, chloride 108, bicarb 28, BUN 20, creatinine 0.79, glucose 98. TIME SPENT ON DISCHARGE: Thirty minutes.
[2020-12-26] MEDS ORDERED: CHLORTHALIDONE 12.5MG PER 1/2 TABLET PO SCH (18:00)
--- NOTE | 2020-12-27 07:48 | ECGEPIP ---
[facility] - ED Test Date: 2020-12-25 Pat Name: GAVINO GOLDMAN Department: Room: [place] [address] Gender: Female Certified Midwife: jerardo : 1940 Requested By: KANU Lee PA-C Order Number: [id number] Reading MD: Avinash Roberson Measurements Intervals [place] Rate: 63 P: 34 NH: 168 QRS: -39 QRSD: 98 T: 65 QT: 428 QTc: 437 Interpretive Statements Sinus rhythm with premature atrial complexes Left axis deviation Minimal voltage criteria for LVH, may be normal variant ( Eduardo product ) Septal infarct , age undetermined NSTTW ABNORMALITY(S) NO PRIORS FOR COMPARISON Electronically Signed on 12-27-2020 7:48:39 EDT by Avinash Roberson
[2020-12-27] MEDS ORDERED: ATORVASTATIN 20 MG TAB PO SCH (09:00)
== END 2020-12-26 13:30 | disposition home or self-care (01) ==
LOC: M ED 13:23 → M ED INP 13:24 → ENRESERV 23:01 → M MSPAV 12-26 00:30
PROVIDERS: ADMIT Family Medicine; ATTEND General Practice
DX: L76.21 Postprocedural hemorrhage of skin and subcutaneous tissue following a dermatologic procedure (principal); I10 Essential (primary) hypertension; I48.20 Chronic atrial fibrillation, unspecified; Z79.01 Long term (current) use of anticoagulants; E11.9 Type 2 diabetes mellitus without complications; M48.00 Spinal stenosis, site unspecified; Z88.8 Allergy status to other drugs, medicaments and biological substances; Z79.899 Other long term (current) drug therapy
CPT/HCPCS: 36415; 80047; 80048; 80053; 85025; 85027; 85610; 85730; 86850; 86900; 86901; 87631; 93005; 96360; 96361; 97161; 99284; G0378; J3301

== ENCOUNTER → 2021-02-21 | Outpatient (CLI) | payer MEDICARE ==
[~2021-02-21] MED LIST changes: +AMLO1TAB24 PO; +DIGO0.123 PO; +VITMTA PO
[2021-02-21 12:09] LABS: BASO % 0.4 % (0.0-1.0); EOS # 0.1 10^3/uL (0.0-0.5); EOS % 0.7 % (0.0-3.0); HEMATOCRIT 37.2 % (36.0-47.0); HEMOGLOBIN 11.5 g/dl (12.0-15.5); LYMPH # 2.6 10^3/uL (1.5-5.0); LYMPH % 28.2 % (24.0-44.0); MEAN CORPUSCULAR HEMOGLOBIN 29.8 pg (27.0-33.0); MEAN CORPUSCULAR HGB CONC 30.9 g/dl (32.0-36.5); MEAN CORPUSCULAR VOLUME 96.4 fl (80.0-96.0); MONO # 0.7 10^3/uL (0.0-0.8); MONO % 7.6 % (2.0-8.0); NEUTROPHILS # 5.7 10^3/uL (1.5-8.5); NEUTROPHILS % 62.5 % (36.0-66.0); PLATELET COUNT, AUTOMATED 206 10^3/uL (150-450); RED BLOOD COUNT 3.86 10^6/uL (4.00-5.40)
[2021-02-21 19:21] LABS: ALBUMIN 3.9 GM/DL (3.2-5.2); ALT/SGPT 18 U/L (12-78); BILIRUBIN,TOTAL 0.6 MG/DL (0.2-1.0); BLOOD UREA NITROGEN 25 MG/DL (7-18); CALCIUM LEVEL 9.1 MG/DL (8.8-10.2); CARBON DIOXIDE LEVEL 30 MEQ/L (21-32); CHLORIDE LEVEL 104 MEQ/L (98-107); CHOLESTEROL LEVEL 156 MG/DL (<200); CHOLESTEROL RISK RATIO 2.785 (<5); CREATININE FOR GFR 1.01 MG/DL (0.55-1.30); GLOMERULAR FILTRATION RATE 56.1 (>32); GLUCOSE, FASTING 138 MG/DL (70-100); HDL CHOLESTEROL 56 MG/DL (>40); LDL CHOLESTEROL 77 MG/DL (<100); NON-HDL-C 100 MG/DL; POTASSIUM SERUM 4.1 MEQ/L (3.5-5.1); SODIUM LEVEL 141 MEQ/L (136-145); TOTAL PROTEIN 6.6 GM/DL (6.4-8.2); TRIGLYCERIDES LEVEL 113 MG/DL (<150); URIC ACID 5.6 MG/DL (2.6-6.0)
[2021-02-21 19:34] LABS: CREATININE, URINE 94.7 MG/DL; MALB URINE SIEMENS 5.8 MG/L; MAU/CREAT RATIO 6.1 MCG/MG (0.0-30.0)
== END ==
LOC: M WUC 08:13
PROVIDERS: ATTEND Internal Medicine
DX: E11.9 Type 2 diabetes mellitus without complications (principal); I10 Essential (primary) hypertension; M10.9 Gout, unspecified; Z11.59 Encounter for screening for other viral diseases; E78.00 Pure hypercholesterolemia, unspecified; Z72.89 Other problems related to lifestyle
CPT/HCPCS: 36415; 80053; 80061; 82043; 83036; 84550; 85025; G0472

== ENCOUNTER 2021-04-20 08:55 | Emergency (ER) | payer MEDICARE ==
[~2021-04-20] VITALS: Ht 157.5 cm; Wt 54.7 kg
[~2021-04-20 08:55] MED LIST changes: +LOSA100T45 PO; -LOSA100T50 PO
[2021-04-20] MEDS ORDERED: ELIQ2.5T PO (09:02)
[2021-04-20 12:01] VITALS: BP 156/70
[2021-04-20] MEDS ORDERED: ACETAMINOPHEN 500 MG TAB PO ONE (12:15)
== END 2021-04-20 12:50 | disposition home or self-care (01) ==
LOC: M ED 08:55
DX: M16.11 Unilateral primary osteoarthritis, right hip (principal); S76.011A Strain of muscle, fascia and tendon of right hip, initial encounter; X58.XXXA Exposure to other specified factors, initial encounter; Y92.89 Other specified places as the place of occurrence of the external cause; E11.9 Type 2 diabetes mellitus without complications; I10 Essential (primary) hypertension; I48.91 Unspecified atrial fibrillation; E78.5 Hyperlipidemia, unspecified; M10.9 Gout, unspecified; Z86.711 Personal history of pulmonary embolism; Z79.899 Other long term (current) drug therapy; Z79.01 Long term (current) use of anticoagulants; Z88.8 Allergy status to other drugs, medicaments and biological substances; Z87.891 Personal history of nicotine dependence

== ENCOUNTER → 2021-05-14 | Outpatient (REF) | payer MEDICARE ==
[~2021-05-14] MED LIST changes: +ELIQ2.5T PO; -LOSA100T45 PO; +LOSA100T50 PO
== END ==
LOC: M LAB REF 17:30
PROVIDERS: ATTEND Physician Assistant
DX: C44.722 Squamous cell carcinoma of skin of right lower limb, including hip (principal)
CPT/HCPCS: 11102; 17000; 88305; G0463

== ENCOUNTER → 2021-06-27 | Outpatient (CLI) | payer MEDICARE ==
--- NOTE | 2021-06-27 11:18 | REP ---
INDICATION: [facility] SCREEN MAMMO FOR MALIGNANT NEOPLASM OF BREAST. COMPARISON: 04/13/2019 as well as other prior exams. TECHNIQUE: MLO and CC views bilateral breasts with tomosynthesis. FINDINGS: Moderate fibroglandular tissue is again visualized bilaterally. There is no new mass or architectural distortion. Clustered tiny microcalcifications are visualized in the outer left breast. Previously placed biopsy clip is again visualized in the upper outer quadrant of the right breast and another is seen in the medial left breast. There are mild vascular calcifications bilaterally. The Volpara volumetric breast density pattern is C. IMPRESSION: BIRADS/ACR category 0, incomplete. Suspect multiple clustered microcalcifications in the outer left breast. Recommend magnification views to further evaluate. This patient's Tyrer-Cuzick lifetime breast cancer risk assessment score is 4.4%. This mammogram was interpreted with the aid of an FDA-approved computer-aided detection system. The patient states she had a clinical breast exam in over 1 year ago. The patient letter being requested is M0. RECOMMENDATION: Recommend magnification views left breast. <Electronically signed by Alvaro Farias > 06/27/21 [id number]
== END ==
LOC: M WHC 09:20
PROVIDERS: ATTEND Internal Medicine
DX: Z12.31 Encounter for screening mammogram for malignant neoplasm of breast (principal); R92.0 Mammographic microcalcification found on diagnostic imaging of breast

== ENCOUNTER → 2021-07-04 | Outpatient (REF) | payer MEDICARE | LOC: M LAB REF 12:06 | PROVIDERS: ATTEND Dermatology | DX: L90.5 Scar conditions and fibrosis of skin (principal) | CPT/HCPCS: 11102; 17000; 88305; G0463 ==

== ENCOUNTER → 2021-07-06 | Outpatient (CLI) | payer MEDICARE ==
--- NOTE | 2021-07-06 15:05 | REP ---
INDICATION: LEFT BREAST ADDITIONAL VIEWS, CALCIFICATIONS. COMPARISON: 06/27/2021 as well as other prior exams. TECHNIQUE: Magnification views left breast as well as a left mL tomographic sequence. FINDINGS: Today's additional views confirm the presence of multiple clustered pleomorphic microcalcifications in the upper-outer quadrant of the left breast. IMPRESSION: BIRADS/ACR category 4, suspicious. Multiple clustered pleomorphic microcalcifications upper-outer quadrant left breast. Stereotactic biopsy recommended. This mammogram was interpreted with the aid of an FDA-approved computer-aided detection system. The patient letter being requested is M4. RECOMMENDATION: Recommend stereotactic biopsy clustered microcalcifications upper-outer quadrant left breast. <Electronically signed by Alvaro Farias > 07/06/21 [id number]
== END ==
LOC: M WHC 13:47
PROVIDERS: ATTEND Internal Medicine
DX: Z12.39 Encounter for other screening for malignant neoplasm of breast (principal); R92.0 Mammographic microcalcification found on diagnostic imaging of breast
CPT/HCPCS: 77065; G0279

== ENCOUNTER → 2021-07-17 | Outpatient (REF) | payer MEDICARE | LOC: M LAB REF 19:26 | PROVIDERS: ATTEND Dermatology | DX: L90.5 Scar conditions and fibrosis of skin (principal) ==

== ENCOUNTER → 2021-08-14 | Outpatient (CLI) | payer MEDICARE ==
[~2021-08-14] MED LIST changes: +LOSA100T45 PO; -LOSA100T50 PO
[2021-08-14 13:54] VITALS: BP 142/60
== END ==
LOC: M WHCPRO 12:21
PROVIDERS: ATTEND Surgery
DX: D24.2 Benign neoplasm of left breast (principal); R92.0 Mammographic microcalcification found on diagnostic imaging of breast

== ENCOUNTER → 2021-08-23 | Outpatient (CLI) | payer MEDICARE ==
[~2021-08-23] MED LIST changes: -LOSA100T45 PO; +LOSA100T50 PO
[2021-08-23 10:12] LABS: BASO % 0.4 % (0.0-1.0); EOS # 0.1 10^3/uL (0.0-0.5); EOS % 0.9 % (0.0-3.0); HEMATOCRIT 37.6 % (36.0-47.0); HEMOGLOBIN 11.8 g/dl (12.0-15.5); LYMPH # 3.2 10^3/uL (1.5-5.0); LYMPH % 33.3 % (24.0-44.0); MEAN CORPUSCULAR HEMOGLOBIN 30.3 pg (27.0-33.0); MEAN CORPUSCULAR HGB CONC 31.4 g/dl (32.0-36.5); MEAN CORPUSCULAR VOLUME 96.4 fl (80.0-96.0); MONO # 0.6 10^3/uL (0.0-0.8); MONO % 6.5 % (2.0-8.0); NEUTROPHILS # 5.7 10^3/uL (1.5-8.5); NEUTROPHILS % 58.6 % (36.0-66.0); PLATELET COUNT, AUTOMATED 192 10^3/uL (150-450); WHITE BLOOD COUNT 9.7 10^3/uL (4.0-10.0)
[2021-08-23 10:35] LABS: ALBUMIN 3.7 GM/DL (3.2-5.2); BILIRUBIN,TOTAL 0.7 MG/DL (0.2-1.0); CALCIUM LEVEL 9.2 MG/DL (8.8-10.2); CREATININE FOR GFR 1.11 MG/DL (0.55-1.30); GLOMERULAR FILTRATION RATE 50.2 (>32); POTASSIUM SERUM 4.1 MEQ/L (3.5-5.1); TOTAL PROTEIN 6.7 GM/DL (6.4-8.2)
[2021-08-23 14:05] LABS: HEMOGLOBIN A1c 6.2 %
== END ==
LOC: M WUC 08:18
PROVIDERS: ATTEND Internal Medicine
DX: D64.9 Anemia, unspecified (principal); E11.9 Type 2 diabetes mellitus without complications; I10 Essential (primary) hypertension

== ENCOUNTER → 2022-02-28 | Outpatient (CLI) | payer MEDICARE ==
[~2022-02-28] MED LIST changes: +LOSA100T45 PO; -LOSA100T50 PO
[2022-02-28 10:28] LABS: BASO # 0.1 10^3/uL (0.0-0.2); BASO % 0.5 % (0.0-1.0); EOS # 0.1 10^3/uL (0.0-0.5); EOS % 0.9 % (0.0-3.0); HEMATOCRIT 39.7 % (36.0-47.0); HEMOGLOBIN 12.3 g/dl (12.0-15.5); LYMPH % 31.6 % (24.0-44.0); MEAN CORPUSCULAR HEMOGLOBIN 30.2 pg (27.0-33.0); MEAN CORPUSCULAR VOLUME 97.5 fl (80.0-96.0); MONO # 0.6 10^3/uL (0.0-0.8); MONO % 6.2 % (2.0-8.0); NEUTROPHILS # 5.7 10^3/uL (1.5-8.5); NEUTROPHILS % 60.5 % (36.0-66.0); PLATELET COUNT, AUTOMATED 207 10^3/uL (150-450); RED BLOOD COUNT 4.07 10^6/uL (4.00-5.40); WHITE BLOOD COUNT 9.4 10^3/uL (4.0-10.0)
[2022-02-28 11:04] LABS: HEMOGLOBIN A1c 6.3 %
[2022-02-28 11:17] LABS: BILIRUBIN,TOTAL 0.6 MG/DL (0.2-1.0); CHOLESTEROL RISK RATIO 2.557 (<5); CREATININE FOR GFR 1.08 MG/DL (0.55-1.30); GLOMERULAR FILTRATION RATE 51.8 (>32); MAGNESIUM LEVEL 1.9 MG/DL (1.8-2.4); POTASSIUM SERUM 3.8 MEQ/L (3.5-5.1); TOTAL PROTEIN 6.9 GM/DL (6.4-8.2); URIC ACID 5.2 MG/DL (2.6-6.0)
[2022-02-28 11:19] LABS: MAU/CREAT RATIO 12.5 MCG/MG (0.0-30.0)
== END ==
LOC: M WUC 08:02
PROVIDERS: ATTEND Internal Medicine
DX: I10 Essential (primary) hypertension (principal); E11.9 Type 2 diabetes mellitus without complications; E78.00 Pure hypercholesterolemia, unspecified; M10.9 Gout, unspecified; D64.9 Anemia, unspecified

== ENCOUNTER → 2022-08-27 | Outpatient (CLI) | payer MEDICARE ==
[2022-08-27 17:11] LABS: CALCIUM LEVEL 9.7 MG/DL (8.3-10.6); CREATININE FOR GFR 1.11 MG/DL (0.55-1.30); GLOMERULAR FILTRATION RATE 50.1 (>32); POTASSIUM SERUM 4.3 MMOL/L (3.5-5.1)
== END ==
LOC: M WUC 11:21
PROVIDERS: ATTEND Physician Assistant
DX: I11.9 Hypertensive heart disease without heart failure (principal)

== ENCOUNTER → 2022-09-03 | Outpatient (CLI) | payer MEDICARE ==
[2022-09-03 10:02] LABS: HEMATOCRIT 38.5 % (36.0-47.0); HEMOGLOBIN 11.9 g/dl (12.0-15.5); MEAN CORPUSCULAR HEMOGLOBIN 30.4 pg (27.0-33.0); MEAN CORPUSCULAR HGB CONC 30.9 g/dl (32.0-36.5); MEAN CORPUSCULAR VOLUME 98.5 fl (80.0-96.0); PLATELET COUNT, AUTOMATED 207 10^3/uL (150-450); RED BLOOD COUNT 3.91 10^6/uL (4.00-5.40)
[2022-09-03 10:31] LABS: C REACTIVE PROTEIN QUANTITATIV < 0.40 MG/DL (<1.0)
[2022-09-03 10:33] LABS: ALBUMIN 3.8 G/DL (3.2-5.2); ALKALINE PHOSPHATASE 53 U/L (46-116); ALT/SGPT 12 U/L (7.0-40); AST/SGOT 19 U/L (<34); BILIRUBIN,TOTAL 0.8 MG/DL (0.3-1.2); BLOOD UREA NITROGEN 25 MG/DL (9-23); CALCIUM LEVEL 9.6 MG/DL (8.3-10.6); CARBON DIOXIDE LEVEL 31 MMOL/L (20-31); CHLORIDE LEVEL 102 MMOL/L (98-107); CHOLESTEROL LEVEL 148 MG/DL (<200); CHOLESTEROL RISK RATIO 2.73 (<5); CREATININE FOR GFR 0.94 MG/DL (0.55-1.30); GLOMERULAR FILTRATION RATE > 60.0 (>32); GLUCOSE, FASTING 131 MG/DL (74-106); HDL CHOLESTEROL 54.2 MG/DL (>40); LDL CHOLESTEROL 72.2 MG/DL (<100); NON-HDL-C 94 MG/DL; POTASSIUM SERUM 3.9 MMOL/L (3.5-5.1); SODIUM LEVEL 141 MMOL/L (136-145); TOTAL PROTEIN 6.5 G/DL (5.7-8.2); TRIGLYCERIDES LEVEL 108 MG/DL (<150)
[2022-09-03 10:34] LABS: THYROID STIMULATING HORMONE 3.104 uIU/ML (0.55-4.78); TOTAL 25(OH) VITAMIN D 58.7 NG/ML (20.0-100.0); VITAMIN B12 LEVEL 795 PG/ML (211-911)
[2022-09-03 10:36] LABS: CREATININE, URINE 59.8 MG/DL; FREE T4 1.36 NG/DL (0.89-1.76)
[2022-09-03 10:37] LABS: MAU/CREAT RATIO 13.3 MCG/MG (0.0-30.0)
== END ==
LOC: M WUC 08:41
PROVIDERS: ATTEND Internal Medicine Hematology
DX: E11.9 Type 2 diabetes mellitus without complications (principal); Z79.899 Other long term (current) drug therapy

== ENCOUNTER → 2023-01-21 | Outpatient (CLI) | payer MEDICARE ==
[~2023-01-21] MED LIST changes: -LOSA100T45 PO; +LOSA100T46 PO
== END ==
LOC: M WHC 09:16
PROVIDERS: ATTEND Internal Medicine Hematology
DX: Z13.820 Encounter for screening for osteoporosis (principal)

== ENCOUNTER → 2023-04-11 | Outpatient (CLI) | payer MEDICARE ==
[2023-04-11 10:02] LABS: HEMATOCRIT 37.3 % (36.0-47.0); HEMATOCRIT 38.1 % (36.0-47.0); MEAN CORPUSCULAR HGB CONC 31.5 g/dl (32.0-36.5); MEAN CORPUSCULAR VOLUME 98.4 fl (80.0-96.0); PLATELET COUNT, AUTOMATED 184 10^3/uL (150-450); RED BLOOD COUNT 3.87 10^6/uL (4.00-5.40); WHITE BLOOD COUNT 10.3 10^3/uL (4.0-10.0)
[2023-04-11 10:29] LABS: HEMOGLOBIN A1c 6.4 % (4.0-6.0); TOTAL 25(OH) VITAMIN D 58.3 NG/ML (20.0-100.0)
[2023-04-11 10:30] LABS: C REACTIVE PROTEIN QUANTITATIV < 0.40 MG/DL (<1.0); THYROID STIMULATING HORMONE 2.984 uIU/ML (0.55-4.78)
[2023-04-11 10:31] LABS: ALBUMIN 3.9 G/DL (3.2-5.2); ALKALINE PHOSPHATASE 57 U/L (46-116); ALT/SGPT 11 U/L (7.0-40); AST/SGOT 8 U/L (<34); BILIRUBIN,TOTAL 0.7 MG/DL (0.3-1.2); BLOOD UREA NITROGEN 24 MG/DL (9-23); CALCIUM LEVEL 9.3 MG/DL (8.3-10.6); CARBON DIOXIDE LEVEL 31 MMOL/L (20-31); CHLORIDE LEVEL 103 MMOL/L (98-107); CHOLESTEROL LEVEL 147 MG/DL (<200); CHOLESTEROL RISK RATIO 3.33 (<5); CREATININE FOR GFR 0.97 MG/DL (0.55-1.30); FREE T4 1.17 NG/DL (0.89-1.76); GLOMERULAR FILTRATION RATE 58.5 (>32); GLUCOSE, FASTING 156 MG/DL (74-106); HDL CHOLESTEROL 44.1 MG/DL (>40); IRON (FE) 104 UG/DL (50-170); LDL CHOLESTEROL 59.9 MG/DL (<100); NON-HDL-C 102.9 MG/DL; PERCENT SATURATION 38.1 % (13.2-45.0); POTASSIUM SERUM 3.9 MMOL/L (3.5-5.1); SODIUM LEVEL 140 MMOL/L (136-145); TOTAL IRON BINDING CAPACITY 273 UG/DL (250-425); TOTAL PROTEIN 6.4 G/DL (5.7-8.2); TRIGLYCERIDES LEVEL 215 MG/DL (<150)
[2023-04-11 10:32] LABS: VITAMIN B12 LEVEL 654 PG/ML (211-911)
[2023-04-11 10:51] LABS: CREATININE, URINE 63.9 MG/DL
[2023-04-11 10:52] LABS: MALB URINE SIEMENS < 3.0 MG/L; MAU/CREAT RATIO 4.6 MCG/MG (0.0-30.0)
== END ==
LOC: M WUC 08:01
PROVIDERS: ATTEND Internal Medicine Hematology
DX: E11.9 Type 2 diabetes mellitus without complications (principal); D64.9 Anemia, unspecified; Z13.820 Encounter for screening for osteoporosis; Z79.899 Other long term (current) drug therapy

== ENCOUNTER → 2023-11-26 | Outpatient (CLI) | payer MEDICARE | LOC: M EKG 14:03 | PROVIDERS: ATTEND Physician Assistant | DX: I44.1 Atrioventricular block, second degree (principal); I48.0 Paroxysmal atrial fibrillation ==

== ENCOUNTER → 2023-11-28 | Outpatient (CLI) | payer MEDICARE | LOC: M PLAIMG 10:40 | PROVIDERS: ATTEND Physician Assistant | DX: I08.0 Rheumatic disorders of both mitral and aortic valves (principal) ==

== ENCOUNTER → 2024-01-13 | Outpatient (CLI) | payer MEDICARE ==
[2024-01-13 11:15] LABS: HEMOGLOBIN 11.9 g/dl (12.0-15.5); MEAN CORPUSCULAR HGB CONC 31.3 g/dl (32.0-36.5); MEAN CORPUSCULAR VOLUME 95.7 fl (80.0-96.0); PLATELET COUNT, AUTOMATED 218 10^3/uL (150-450); RED BLOOD COUNT 3.97 10^6/uL (4.00-5.40); WHITE BLOOD COUNT 10.8 10^3/uL (4.0-10.0)
[2024-01-13 11:30] LABS: HEMOGLOBIN A1c 6.4 % (4.0-6.0)
[2024-01-13 11:38] LABS: CREATININE, URINE 88.2 MG/DL; MAU/CREAT RATIO 3.4 MCG/MG (0.0-30.0)
[2024-01-13 11:42] LABS: C REACTIVE PROTEIN QUANTITATIV < 0.40 MG/DL (<1.0)
[2024-01-13 11:43] LABS: IRON (FE) 72 UG/DL (50-170)
[2024-01-13 11:44] LABS: ALBUMIN 3.6 G/DL (3.2-5.2); ALKALINE PHOSPHATASE 57 U/L (46-116); ALT/SGPT 13 U/L (7.0-40); AST/SGOT 11 U/L (<34); BILIRUBIN,TOTAL 0.8 MG/DL (0.3-1.2); BLOOD UREA NITROGEN 29 MG/DL (9-23); CALCIUM LEVEL 9.5 MG/DL (8.3-10.6); CARBON DIOXIDE LEVEL 30 MMOL/L (20-31); CHLORIDE LEVEL 103 MMOL/L (98-107); CHOLESTEROL LEVEL 145 MG/DL (<200); CHOLESTEROL RISK RATIO 2.97 (<5); CREATININE FOR GFR 1.02 MG/DL (0.55-1.30); GLOMERULAR FILTRATION RATE 55.1 (>32); GLUCOSE, FASTING 149 MG/DL (74-106); HDL CHOLESTEROL 48.8 MG/DL (>40); LDL CHOLESTEROL 75.8 MG/DL (<100); NON-HDL-C 96.2 MG/DL; POTASSIUM SERUM 3.8 MMOL/L (3.5-5.1); SODIUM LEVEL 141 MMOL/L (136-145); TOTAL PROTEIN 6.4 G/DL (5.7-8.2); TRIGLYCERIDES LEVEL 102 MG/DL (<150)
[2024-01-13 11:45] LABS: VITAMIN B12 LEVEL 812 PG/ML (211-911)
[2024-01-13 11:46] LABS: FREE T4 1.21 NG/DL (0.89-1.76); THYROID STIMULATING HORMONE 2.576 uIU/ML (0.55-4.78)
== END ==
LOC: M WUC 08:12
PROVIDERS: ATTEND Internal Medicine Hematology
DX: E11.9 Type 2 diabetes mellitus without complications (principal); D64.9 Anemia, unspecified; Z79.899 Other long term (current) drug therapy

== ENCOUNTER 2025-01-26 10:29 | Emergency (ER) | payer MEDICARE ==
[~2025-01-26] VITALS: Ht 157.5 cm; Wt 54.2 kg
[2025-01-26 11:03] LABS: HEMATOCRIT 41.8 % (36.0-47.0); HEMOGLOBIN 13.2 g/dl (12.0-15.5); MEAN CORPUSCULAR HEMOGLOBIN 29.3 pg (27.0-33.0); MEAN CORPUSCULAR HGB CONC 31.6 g/dl (32.0-36.5); MEAN CORPUSCULAR VOLUME 92.7 fl (80.0-96.0); PLATELET COUNT, AUTOMATED 238 10^3/uL (150-450); RED BLOOD COUNT 4.51 10^6/uL (4.00-5.40); WHITE BLOOD COUNT 12.7 10^3/uL (4.0-10.0)
[2025-01-26 11:18] LABS: INR 0.96; PROTHROMBIN TIME 13.1 SECONDS (12.5-14.5)
[2025-01-26 11:22] LABS: CK-MB VALUE MASS < 1.0 NG/ML (<3.6)
[2025-01-26 11:28] LABS: LIPASE 40 U/L (12-53)
[2025-01-26 11:29] LABS: CPK CREATINE PHOSPHOKINASE 46 U/L (34-145); MB/CK RELATIVE INDEX 2.17 (< OR =4)
[2025-01-26 11:30] LABS: ALKALINE PHOSPHATASE 67 U/L (35-104); ALT/SGPT 14 U/L (7.0-40); AST/SGOT 12 U/L (<34); BILIRUBIN,DIRECT 0.2 MG/DL (<0.4); BILIRUBIN,TOTAL 0.6 MG/DL (0.3-1.2); BLOOD UREA NITROGEN 31 MG/DL (9-23); CALCIUM LEVEL 9.9 MG/DL (8.3-10.6); CARBON DIOXIDE LEVEL 31 MMOL/L (20-31); CHLORIDE LEVEL 103 MMOL/L (98-107); GLOMERULAR FILTRATION RATE 55.6 (>32); GLUCOSE, FASTING 119 MG/DL (74-106); POTASSIUM SERUM 4.8 MMOL/L (3.5-5.1); SODIUM LEVEL 141 MMOL/L (136-145); TOTAL PROTEIN 6.9 G/DL (5.7-8.2)
[2025-01-26 11:33] LABS: ATYPICAL LYMPH 12 % (0-5); BASOPHILS 1 % (0-1); EOSINOPHILS 1 % (0-3); LYMPHOCYTES 29 % (16-44); MONOCYTES 3 % (0-5); NEUTROPHILS 54 % (28-66)
[2025-01-26 11:34] LABS: PLATELET ESTIMATE NORMAL (NORMAL)
[2025-01-26] MEDS ORDERED: ISOVUE-370 76% 100ML VIAL As Ordered ONE (12:09)
[2025-01-26 14:22] VITALS: BP 183/79; TEMP 97.4; O2SAT 98
== END 2025-01-26 14:30 | disposition home or self-care (01) ==
LOC: M ED 10:29
DX: R07.89 Other chest pain (principal); R59.0 Localized enlarged lymph nodes; I10 Essential (primary) hypertension; I48.91 Unspecified atrial fibrillation; E11.9 Type 2 diabetes mellitus without complications; E78.5 Hyperlipidemia, unspecified; D64.9 Anemia, unspecified; Z85.828 Personal history of other malignant neoplasm of skin; Z87.891 Personal history of nicotine dependence; Z79.01 Long term (current) use of anticoagulants; Z79.899 Other long term (current) drug therapy; Z88.8 Allergy status to other drugs, medicaments and biological substances
CPT/HCPCS: 71045; 71275; 80048; 80076; 82550; 82553; 83690; 84484; 85025; 85610; 93005; 99285; Q9967